=== PATIENT | male | born 1985 | race Caucasian/White ===

== ENCOUNTER 2017-04-21 06:00 | Inpatient (IN) | payer OTHER, MEDICAID ==
[~2017-04-21] VITALS: Ht 182.9 cm; Wt 77.1 kg
--- NOTE | ~2017-04-21 | PN ---
Unit #: [id number] #: [id number] Patient: CAREY SINGH [id number] [facility] [address] [place] [address] [id number] I MR#: [id number] NAME: CAREY SINGH ROOM: [facility] Age: 31 Sex: M Admission Date: 04/21/2017 : 1985 Attending Physician: Taqueria Riley M.D. Admitting Physician: Taqueria Riley M.D. [facility] PRO[facility] NOT[facility] DATE 04/05/2017 DISCUSSION The patient remains seclusive to room with little participation within the therapeutic milieu but his detox continues uneventfully should continue and this rate we should expect a.m. discharge. Dictated by... Taqueria Riley M.D. CB/vicky TD: 04/25/2017 22:24 JOB #: [id number] [facility] PROGRESS NOTES Page 1 of 1 X Taqueria Riley MD X PROGRESS NOTE
--- NOTE | ~2017-04-21 | PN ---
Unit #: [id number] #: [id number] Patient: CAREY SINGH [id number] [facility] [address] [place] [address] [id number] MR#: [id number] NAME: CAREY SINGH ROOM: [facility] Age: 31 Sex: M Admission Date: 04/21/2017 : 1985 Attending Physician: Taqueria Riley M.D. Admitting Physician: Taqueria Riley M.D. Primary Care Physician: -[facility] PROGRESS NOTES DATE 04/23/2017 DISCUSSION The patient is sleeping very soundly today. Multiple attempts to arouse the patient both by this physician and his roommate are unsuccessful. His detox continues uneventfully. Dictated by... Taqueria Riley M.D. CB/bzg TD: 04/23/2017 13:57 JOB #: [id number] [facility] PROGRESS NOTES Page 1 of 1 X Taqueria Riley MD X PROGRESS NOTE
--- NOTE | ~2017-04-21 | PN ---
Unit #: [id number] #: [id number] Patient: CAREY SINGH [id number] [facility] [address] [place] [address] [id number] I MR#: [id number] NAME: CAREY SINGH ROOM: [facility] Age: 31 Sex: M Admission Date: 04/21/2017 : 1985 Attending Physician: Taqueria Riley M.D. Admitting Physician: Taqueria Riley M.D. Primary Care Physician: -[facility] PROGRESS NOTES DATE 04/24/2017 DISCUSSION The patient is awake and pleasant and cooperative when seen today. He is reporting a wish to restart Citalopram which he has taken previously and is requesting a medication for sleep. He continues to exhibit significant symptoms of tremulousness related to alcohol withdrawal. I have spoken with the patient briefly today regarding post discharge treatment options. Dictated by... Taqueria Riley M.D. CB/vicky TD: 04/24/2017 23:13 JOB #: [id number] [facility] PROGRESS NOTES Page 1 of 1 X Taqueria Riley MD PROGRESS NOTE
--- NOTE | ~2017-04-21 | DS ---
Unit #: [id number] #: [id number] Patient: CAREY SINGH [id number] [place] [address] [id number] I MR#: [id number] NAME: CAREY SINGH ROOM: [facility] Age: 31 Sex: M Admission Date: 04/21/2017 : 1985 Discharge Date: 04/26/2017 Attending Physician: Taqueria Riley M.D. Primary Care Physician: [facility] DISCHARGE SUMMARY REASON FOR ADMISSION The patient is a 31-year-old white male, admitted to the [address] [place] [address] for alcohol detox. HOSPITAL COURSE The patient was admitted to the [address] [place] [address] and placed on the routine detoxification protocol for alcohol. He was initially quite groggy, but did increase his participation within the therapeutic milieu as his stay in the hospital progressed. By 04/26/2017, the patient's detox was complete and he requested discharge and it was so ordered. He was during his hospitalization begun on Celexa 20 mg daily for depression and Desyrel 50 mg at h.s. p.r.n. insomnia. FINAL DIAGNOSES Dysthymic disorder and alcohol use disorder. DISPOSITION ON DISCHARGE The patient is discharged on the following medications; Celexa 20 mg daily for depression and Desyrel 50 mg at h.s. p.r.n. insomnia. DISCHARGE INSTRUCTIONS No dietary or physical restrictions were placed on the patient at the time of discharge. FOLLOWUP He will follow up through the auspices of community mental health resources in the [place], [place] area. PROGNOSIS His prognosis is considered good. Dictated by... Taqueria Riley M.D. CB/jaydon TD: 04/26/2017 16:03 JOB #: [id number] Unit #: [id number] #: [id number] Patient: CAREY SINGH DISCHARGE SUMMARY Page 1 of 1 X Taqueria Riley MD DISCHARGE SUMMARY
--- NOTE | ~2017-04-21 | HP ---
Unit #: [id number] #: [id number] Patient: CAREY SINGH [id number] [place] [address] [id number] I MR#: [id number] NAME: CAREY SINGH ROOM: [facility] Age: 31 Sex: M Admission Date: 04/21/2017 : 1985 Attending Physician: Taqueria Riley M.D. Admitting Physician: Taqueria Riley M.D. [facility] HISTORY AND PHYSICAL HISTORY OF PRESENT ILLNESS Carey is a 31 year old admitted to [facility] because of his alcohol abuse. He is detoxing. PAST MEDICAL HISTORY Long history of alcohol abuse. PAST SURGICAL HISTORY Nothing reported. ALLERGIES No known drug allergies. SOCIAL HISTORY Smokes less than one-half pack per day. Drinks a fifth of liquor on a daily basis. Admits to using marijuana on occasion. FAMILY HISTORY Medically noncontributory. REVIEW OF SYSTEMS CONSTITUTIONAL: No fever or chills. HEENT: Denies any sore throat, ear pain or runny nose. CARDIOVASCULAR: Denies chest pain, irregular heart rhythm or palpitations. CHEST: Denies shortness of breath or cough. No hemoptysis. GASTROINTESTINAL: Denies nausea, vomiting, diarrhea or chronic constipation. ENDOCRINE: Denies history of increased thirst or urination. No recent significant weight loss or gain. GENITOURINARY: Denies dysuria, frequency, or hematuria. SKIN: Denies any rashes. HEMATOLOGIC: Denies history of increased bleeding or bruising. MUSCULOSKELETAL: Denies any hot, swollen joints. No generalized muscle pain. NEUROLOGIC: Denies problems with vision or speech. No frequent, severe headaches. No numbness, tingling or weakness in any extremities. Denies loss of bladder or bowel control. CURRENT MEDICATIONS Detox protocol. PHYSICAL EXAMINATION GENERAL: Alert, thin. No apparent distress. Unit #: [id number] #: [id number] Patient: CAREY SINGH VITAL SIGNS: Blood pressure 134/92, heart rate 90, respirations 16, and temperature 98.6. WEIGHT: 170. HEIGHT: 6 feet 0 inches. SKIN: Warm and dry without rash or lesion. HEENT: Normocephalic. TMs not viewed. Oral and nasal passages clear. Conjunctivae clear. PERRLA. EOMs intact. NECK: Supple without lymphadenopathy or thyromegaly. HEART: Regular rate and rhythm without murmur. LUNGS: Clear. ABDOMEN: Soft, nontender. : Not done. EXTREMITIES: No evidence of cyanosis, clubbing or edema. Moves all without focal deficit. NEUROLOGICAL: Grossly within normal limits. Cranial Nerves: II: Visual doe are intact. III, IV AND : Extraocular movements are intact. Pupils are equal, round and reactive to light. V: Facial sensation is grossly normal. VII: Facial movements and expression are normal. VIII: Auditory acuity grossly intact. IX, X: Uvula is midline. Phonation is normal. XI: Patient shrugs shoulders and turns head normally. XII: Tongue protrudes in the midline. Sensory and Motor Function: Sensory and motor sensation is grossly normal. Motor: moves all extremities well. Coordination: Gait is normal. Deep Tendon Reflexes: Intact. IMPRESSION Psychiatric admission. RECOMMENDATIONS PSYCHIATRIC: Per psychiatrist. MEDICAL: I see no contraindication to participate in this facility's activities. MEDICAL PROGNOSIS Good. MEDICAL CONDITION Stable. Dictated by... Paola Sanchez P.A.-C. for Manasa Cuevas/valencia TD: 04/22/2017 15:03 JOB #: [id number] Unit #: [id number] #: [id number] Patient: CAREY SINGH HISTORY AND PHYSICAL Page 1 of 1 X Paola Sanchez HISTORY AND PHYSICAL
--- NOTE | ~2017-04-21 | PA ---
Unit #: [id number] #: [id number] Patient: CAREY SINGH [id number] [place] [address] [id number] MR#: [id number] NAME: CAREY SINGH ROOM: [facility] Age: 31 Sex: M Admission Date: 04/21/2017 : 1985 Date of Assessment: 04/22/2017 Attending Physician: Taqueria Riley M.D. Admitting Physician: Taqueria Riley M.D. Primary Care Physician: [facility] PSYCHIATRIC ASSESSMENT IDENTIFYING INFORMATION The patient is a 31-year-old unmarried white male admitted to the [address] [place] [address] for alcohol detox. INFORMANT(S) Chart. Patient cannot be aroused for interview. CHIEF COMPLAINT None given. HISTORY OF PRESENT ILLNESS The patient is a 31-year-old white male admitted to the [address] [place] [address] for alcohol detox. The patient reports that he is drinking up to a fifth of hard liquor on a daily basis. He has a history of several previous psychiatric hospitalizations related to his alcohol use but has not been able to maintain sobriety. He denies abuse of other psychoactive substances. At the time of admission, the patient reports some passive suicidal ideation but denies prior suicide attempts or gestures and denies prior suicidal ideation. He is currently on no prescribed medications. When seen today, the patient is sleeping soundly and cannot be aroused for interview. PAST PSYCHIATRIC HISTORY As above. FAMILY HISTORY The patient reports an extensive family history of alcohol use. SOCIAL HISTORY The patient is facing significant financial stressors and is about to file bankruptcy. He lives with his girlfriend. MEDICAL HISTORY Noncontributory. MEDICATION HISTORY None. ALLERGIES None. MENTAL STATUS EXAM At this time, reveals the patient to be a soundly sleeping white male. Unit #: [id number] #: [id number] Patient: CAREY SINGH Multiple attempts to arouse him are unsuccessful. ASSETS AND LIABILITIES Patient's assets, motivation for change. Liabilities, lack of resources. ADMITTING DIAGNOSIS Alcohol use disorder. PSYCHIATRIC PLAN/TREATMENT GOALS The patient remains hospitalized for safety and stabilization. Routine detoxification protocol for alcohol has been initiated. The patient will participate in appropriate polo and milieu activities. ESTIMATED LENGTH OF STAY Three to five days. Dictated by... Taqueria Riley M.D. Jennifer TD: 04/22/2017 15:46 JOB #: [id number] PSYCHIATRIC ASSESSMENT Page 1 of 1 X Taqueria Riley MD PSYCHIATRIC ASSESSMENT
[2017-04-22 10:17] LABS: BASOPHIL% 0.8 % (0-2.5); EOSINOPHIL# 0.4 X10e3 (0-0.7); EOSINOPHIL% 9.7 % (0.0-7.0); HEMATOCRIT 44.1 % (38.0-50.0); HEMOGLOBIN 14.7 gm/dL (13.0-16.0); LYMPHOCYTE# 1.3 X10e3 (1.0-3.5); LYMPHOCYTE% 29.7 % (17.0-45.0); MEAN CELL VOLUME 98.1 FL (83-96); MEAN CORPUSCULAR HEMOGLOBIN 32.6 PG (28-34); MEAN CORPUSCULAR HGB CONC 33.3 g/dL (30-36); MEAN PLATELET VOLUME 7.6 FL (6.5-11.5); MONOCYTE# 0.3 X10e3 (0-1.0); MONOCYTE% 7.1 % (3.0-12.0); NEUTROPHIL# 2.2 X10e3 (1.5-7.1); NEUTROPHIL% 52.7 % (40-75); PLATELET COUNT 158 X10e3 (140-420); RED CELL DISTRIBUTION WIDTH 13.5 % (11.0-15.5); WHITE BLOOD COUNT 4.2 X10e3 (4.0-10.5)
[2017-04-22 10:21] LABS: DIFF IND NO
[2017-04-22 10:25] LABS: ALBUMIN SERUM 3.9 g/dL (3.5-5.0); BILIRUBIN,TOTAL 3.4 mg/dL (0.2-2.0); CALCIUM SERUM 9.1 mg/dL (8.4-10.2); GLOM FILT RATE Estimated 101.3 mL/min (>60); POTASSIUM 3.8 mmol/L (3.5-5.1); PROTEIN TOTAL SERUM 6.7 g/dL (6.0-8.3)
[2017-04-22 12:46] LABS: URINE APPEARANCE CLEAR; URINE BLOOD NEG (NEG); URINE COLOR DK YELLOW; URINE GLUCOSE NEG (NEG); URINE KETONE TRACE (NEG); URINE LEUKOCYTE ESTERASE 1+ (NEG); URINE NITRATE NEG (NEG); URINE PROTEIN NEG (NEG); URINE SPECIFIC GRAVITY 1.015 (1.003-1.035)
[2017-04-22 13:05] LABS: URINE BILIRUBIN NEG (NEG)
[2017-04-22 13:19] LABS: AMPHETAMINE NEG (NEG); BARBITURATES NEG (NEG); BENZODIAZEPINES POS (NEG); COCAINE NEG (NEG); MARIJUANA NEG (NEG); OPIATES NEG (NEG); TRICYCLIC ANTIDEPRESSANTS NEG (NEG); U METHADONE NEG (NEG)
== END 2017-04-26 17:05 | DRG 897 ==
LOC: P1E 14:14
PROVIDERS: Specialist
PROC: HZ2ZZZZ Detoxification Services for Substance Abuse Treatment (ICD-10-PCS; principal; 2017-04-22)
DX: F10.10 Alcohol abuse, uncomplicated (principal)
CPT/HCPCS: 80053; 80307; 81003; 82947; 85025; J2550